=== PATIENT | female | born 2000 | race Caucasian/White ===

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

== ENCOUNTER → 2020-05-24 | Outpatient (CLI) | payer OTHER | END | disposition home or self-care (01) | LOC: LABWHC1 14:15 | PROVIDERS: ATTEND Family Medicine | DX: J06.9 Acute upper respiratory infection, unspecified (principal) | CPT/HCPCS: U0003; C9803 ==

== ENCOUNTER 2020-08-18 15:13 | Emergency (ER) | payer OTHER ==
[2020-08-18 15:39] VITALS: BP 135/85; PULSE 72; RESP 18; TEMP 99.1
--- NOTE | 2020-08-18 16:15 | ED ---
General Adult HPI - General Chief complaint: Upper Respiratory Infection Stated complaint: Wants COVID Test Time Seen by Provider: 08/18/20 15:27 Source: patient, RN notes reviewed, old records reviewed Mode of arrival: ambulatory Limitations: no limitations - History of Present Illness Initial comments: 19-year-old female patient to ED for evaluation. Reports a multiple people in the house are covid positive.. She reports that she is having some generalized myalgias sinus congestion. Requests to be tested. Denies any other complaints. Systemic: Pt denies fatigue, fever/chills, rash. Pt denies weakness, night sweats, weight loss. Neuro: Pt denies headache, visual disturbances, syncope or pre-syncope. HEENT: Pt denies ocular discharge or irritation, otalgia, rhinorrhea, pharyngitis or notable lymphadenopathy. Cardiopulmonary: Pt denies chest pain, SOB, heart palpitations, dyspnea on exertion. Abdominal/GI: Pt denies abdominal pain, n/v/d. : Pt denies dysuria, burning w/ urination, frequency/urgency. Denies new onset urinary or bowel incontinence. MSK: Pt denies loss of strength or function in extremities. Neuro: Pt denies new onset weakness, paresthesias. - Related Data Home Medications Medication Instructions Recorded Confirmed Cetirizine HCl [Zyrtec] 10 mg PO DAILY 03/01/19 03/01/19 Clarithromycin [Biaxin] 500 mg PO Q12H 03/01/19 03/01/19 methylPREDNISolone Dose Pack See Taper PO DIRECTED 03/01/19 03/01/19 [Medrol Dose Pack] Allergies Allergy/AdvReac Type Severity Reaction Status Date / Time No Known Allergies Allergy Verified 08/18/20 15:38 Review of Systems ROS Statement: Those systems with pertinent positive or pertinent negative responses have been documented in the HPI. ROS Other: All systems not noted in ROS Statement are negative. Past Medical History Past Medical History: No Reported History History of Any Multi-Drug Resistant Organisms: None Reported Past Surgical History: No Surgical Hx Reported Past Psychological History: No Psychological Hx Reported Smoking Status: Never smoker Past Alcohol Use History: None Reported Past Drug Use History: None Reported General Exam - General Exam Comments Initial Comments: Constitutional: NAD, AOX3, Pt has pleasant affect. HEENT: NC/AT, trachea midline, neck supple, no lymphadenopathy. External ears appear normal, without discharge. Mucous membranes moist. Eyes PERRLA, EOM intact. There is no scleral icterus. No pallor noted. Cardiopulmonary: RRR, no murmurs, rubs or gallops, no JVD noted. Lungs CTAB in anterior and posterior dunne. No peripheral edema. Abdominal exam: Abdomen soft and non-distended. Bowel sounds active in LLQ. No hepatosplenomegaly. No ecchymosis Neuro: CN II-XII grossly intact. No nuchal rigidity. No raccon eyes, no antony sign, no hemotympanum. No cervical spinal tenderness. MSK: No posterior calf tenderness bilaterally, homans sign negative bilaterally. Full active ROM in upper and lower extremities, 5/5 stregnth. Limitations: no limitations Course Vital Signs 08/18/20 15:35 Temperature 99.1 F Pulse Rate 72 Respiratory 18 Rate Blood Pressure 135/85 O2 Sat by Pulse 99 Oximetry Medical Decision Making - Medical Decision Making 19-year-old female patient to ED for evaluation. Reports a multiple people in the house are covid positive. She reports that she is having some generalized myalgias sinus congestion. Requests to be tested. Denies any other complaints. Patient will signs are stable, afebrile. Physical exam negative for acute pathology. Patient declined chest x-ray. Will be discharged outpatient follow- up and return precautions. Case discussed with Dr. Yao. Disposition Clinical Impression: Exposure to COVID-19 virus Disposition: HOME SELF-CARE Condition: Stable Instructions (If sedation given, give patient instructions): Upper Respiratory Infection (ED) Additional Instructions: Follow up with PCP tomorrow. Drink lots of fluids. Self quarantine until test results. If your symptoms worsen return to Emergency Department. Is patient prescribed a controlled substance at d/c from ED?: No Referrals: Mario Sapp MD [Primary Care Provider] - 1-2 days
== END 2020-08-18 16:35 | disposition home or self-care (01) ==
LOC: EC 15:13
DX: U07.1 COVID-19 (principal)
CPT/HCPCS: 87635; 99284

== ENCOUNTER 2021-11-03 02:52 | Emergency (ER) | payer OTHER ==
[2021-11-03 03:00] VITALS: TEMP 97.6
[2021-11-03] MEDS ORDERED: ACETAMINOPHEN TAB 325 MG TAB PO STA (03:21)
[2021-11-03] MEDS ORDERED: ONDANSETRON ODT 4 MG TAB PO STA (03:21)
--- NOTE | 2021-11-03 03:32 | ED ---
Head Injury HPI - General Chief complaint: Head Injury Stated complaint: Fall, vomiting Time Seen by Provider: 11/03/21 03:07 Source: patient Mode of arrival: ambulatory Limitations: no limitations - History of Present Illness Initial comments: This patient is 21-year-old woman who states that she had a fall tonight around 5 PM. She had slipped on ice, falling backwards and landed on her back and struck the back of her head. There was no loss of consciousness. The patient states that she had a little bit of pain but then felt well. She states that over the past hour to 2 she has developed more of a headache. She indicates the bifrontal area, states it is aching. There are no neurologic symptoms. There is no neck pain or stiffness. She also has had nausea and a couple episodes of vomiting. She denies other injury. MD Complaint: head injury -: hour(s) Mechanism of Injury: mechanical fall Location: occipital Loss of Consciousness: no Previous Trauma to this Area: No Place: outdoors Radiation: none Severity: moderate Quality: aching Consistency: constant Provoking factors: none known Other Injuries: none Associated Symptoms: nausea, vomiting - Related Data Home Medications Medication Instructions Recorded Confirmed Cetirizine HCl [Zyrtec] 10 mg PO DAILY 03/01/19 03/01/19 Clarithromycin [Biaxin] 500 mg PO Q12H 03/01/19 03/01/19 methylPREDNISolone Dose Pack See Taper PO DIRECTED 03/01/19 03/01/19 [Medrol Dose Pack] Previous Rx's Medication Instructions Recorded Ondansetron Odt [Zofran ODT] 4 mg PO Q8HR PRN #10 tab 11/03/21 Allergies/Adverse reactions: Allergies Allergy/AdvReac Type Severity Reaction Status Date / Time No Known Allergies Allergy Verified 11/03/21 02:57 Review of Systems ROS Statement: Those systems with pertinent positive or pertinent negative responses have been documented in the HPI. ROS Other: All systems not noted in ROS Statement are negative. Constitutional: Denies: fever, chills Eyes: Denies: eye pain, vision change ENT: Denies: ear pain, epistaxis Respiratory: Denies: cough, dyspnea Cardiovascular: Denies: chest pain, syncope Gastrointestinal: Reports: nausea, vomiting. Denies: abdominal pain, diarrhea, hematemesis Genitourinary: Denies: dysuria, hematuria Musculoskeletal: Denies: back pain Skin: Denies: rash Neurological: Reports: headache. Denies: weakness, numbness, confusion, abnormal gait, vertigo Past Medical History Past Medical History: No Reported History History of Any Multi-Drug Resistant Organisms: None Reported Past Surgical History: No Surgical Hx Reported Past Psychological History: No Psychological Hx Reported Smoking Status: Never smoker Past Alcohol Use History: None Reported Past Drug Use History: None Reported General Exam Limitations: no limitations General appearance: alert, in no apparent distress Head exam: Present: atraumatic, normocephalic, normal inspection Eye exam: Present: normal appearance, PERRL, EOMI. Absent: scleral icterus, conjunctival injection, nystagmus, periorbital swelling ENT exam: Present: normal oropharynx, mucous membranes moist, TM's normal bilaterally, normal external ear exam Neck exam: Present: normal inspection, full ROM. Absent: tenderness, meningismus Respiratory exam: Present: normal lung sounds bilaterally. Absent: respiratory distress, wheezes, rales, rhonchi, stridor Cardiovascular Exam: Present: regular rate, normal rhythm, normal heart sounds. Absent: systolic murmur, diastolic murmur, rubs, gallop GI/Abdominal exam: Present: soft. Absent: tenderness, guarding, rebound Extremities exam: Present: normal inspection, normal capillary refill Back exam: Present: normal inspection. Absent: paraspinal tenderness, vertebral tenderness Neurological exam: Present: alert, CN II-XII intact. Absent: oriented X3, motor sensory deficit Skin exam: Present: warm, dry, intact, normal color. Absent: rash Course Vital Signs 11/03/21 02:57 Temperature 97.6 F Pulse Rate 75 Respiratory 16 Rate Blood Pressure 142/96 O2 Sat by Pulse 99 Oximetry Disposition Clinical Impression: Concussion without loss of consciousness Disposition: HOME SELF-CARE Condition: Good Instructions (If sedation given, give patient instructions): Concussion (ED) Prescriptions: Ondansetron Odt [Zofran ODT] 4 mg PO Q8HR PRN #10 tab PRN Reason: Nausea Is patient prescribed a controlled substance at d/c from ED?: No Referrals: Mario Sapp MD [Primary Care Provider] - 1-2 days
--- NOTE | 2021-11-03 03:48 | CT ---
EXAMINATION TYPE: CT brain wo con DATE OF EXAM: 11/03/2021 COMPARISON: None HISTORY: Fall CT DLP: 1139.4 mGycm Automated exposure control for dose reduction was used. Images of the brain obtained without contrast. Ventricles and sulci appear normal. There is no mass effect or midline shift. There is no sign of int racranial hemorrhage. The calvarium is intact. Skull base is intact. There is normal aeration of the mastoid sinuses. IMPRESSION: Negative unenhanced head CT scan
[2021-11-03 04:54] VITALS: BP 140/84; PULSE 80; RESP 18
== END 2021-11-03 04:54 | disposition home or self-care (01) ==
LOC: EC 02:52
DX: S06.0X0A Concussion without loss of consciousness, initial encounter (principal); W01.0XXA Fall on same level from slipping, tripping and stumbling without subsequent striking against object, initial encounter
CPT/HCPCS: 70450; 99284

== ENCOUNTER 2023-10-29 18:01 | Emergency (ER) | payer BC, OTHER ==
--- NOTE | 2023-10-29 18:14 | ED ---
Upper Extremity HPI - General Source: patient, RN notes reviewed Mode of arrival: ambulatory Limitations: no limitations - History of Present Illness MD Complaint: Injury to:: right, finger <Bobbi Junior - Last Filed: 10/29/23 18:11> - General Source: patient, RN notes reviewed <Lorraine Barrera - Last Filed: 10/29/23 18:35> - General Chief Complaint: Extremity Injury, Upper Stated Complaint: Rt hand injury Time Seen by Provider: 10/29/23 18:11 - History of Present Illness Initial Comments: This is a 23 year old female who presents to the emergency department for a right finger injury. States that she cut her finger pinky finger in the process of cutting cucumbers. Tetanus vaccine is up to date. (Bobbi Junior) Patient is a 23-year-old female presented ER with chief complaint laceration. Patient states she was cutting cucumbers a mandolian slicer and accidentally cut her right fifth digit. Tetanus is up to date. FUll ROM. Denies any other injuries. (Lorraine Barrera) - Related Data Home Medications Medication Instructions Recorded Confirmed Cetirizine HCl [Zyrtec] 10 mg PO DAILY 03/01/19 03/01/19 Clarithromycin [Biaxin] 500 mg PO Q12H 03/01/19 03/01/19 methylPREDNISolone Dose Pack See Taper PO DIRECTED 03/01/19 03/01/19 [Medrol Dose Pack] Previous Rx's Medication Instructions Recorded Ondansetron Odt [Zofran ODT] 4 mg PO Q8HR PRN #10 tab 11/03/21 Allergies Allergy/AdvReac Type Severity Reaction Status Date / Time No Known Allergies Allergy Verified 10/29/23 18:15 Review of Systems ROS Other: All systems not noted in ROS Statement are negative. <Bobbi Junior - Last Filed: 10/29/23 18:11> ROS Other: All systems not noted in ROS Statement are negative. <Lorraine Barrera - Last Filed: 10/29/23 18:35> ROS Statement: Those systems with pertinent positive or pertinent negative responses have been documented in the HPI. Past Medical History Past Medical History: No Reported History History of Any Multi-Drug Resistant Organisms: None Reported Past Surgical History: No Surgical Hx Reported Past Psychological History: No Psychological Hx Reported Smoking Status: Never smoker Past Alcohol Use History: None Reported Past Drug Use History: None Reported <Bobbi Junior - Last Filed: 10/29/23 18:11> General Exam <Bobbi Junior - Last Filed: 10/29/23 18:11> General appearance: alert, in no apparent distress Head exam: Present: atraumatic, normocephalic, normal inspection Respiratory exam: Present: normal lung sounds bilaterally. Absent: respiratory distress, wheezes, rales, rhonchi, stridor Cardiovascular Exam: Present: regular rate, normal rhythm, normal heart sounds. Absent: systolic murmur, diastolic murmur, rubs, gallop, clicks Extremities exam: Present: other (1cm avuslion laceration to right fifth distal soft tissue. Full active ROM. sensation intact no active bleeding) Neurological exam: Present: alert, oriented X3, CN II-XII intact Psychiatric exam: Present: normal affect, normal mood Skin exam: Present: warm, dry, intact, normal color. Absent: rash <Lorraine Barrera - Last Filed: 10/29/23 18:35> - General Exam Comments Initial Comments: Visual Physical Exam Vital signs reviewed General: Well-appearing, nontoxic, no acute distress. Head: Normocephalic, atraumatic Eyes: PERRLA, EOMI ENT: Airway patent Chest: Nonlabored breathing Skin: No visual rash, normal skin tone Neuro: Alert and oriented 3 Musculoskeletal: No gross abnormalities (Bobbi Junior) Course Vital Signs 10/29/23 18:13 Temperature 98.4 F Pulse Rate 78 Respiratory 20 Rate Blood Pressure 132/90 O2 Sat by Pulse 99 Oximetry Medical Decision Making <Bobbi Junior - Last Filed: 10/29/23 18:11> <Lorraine Barrera - Last Filed: 10/29/23 18:35> - Medical Decision Making I performed the QuickNote portion of this chart. Signed Bobbi Junior PA-C. (Bobbi Junior) Was pt. sent in by a medical professional or institution ([facility], [facility], urgent care, hospital, or skilled nursing...) When possible be specific @ -No Did you speak to anyone other than the patient for history (EMS, parent, family, police, friend...)? What history was obtained from this source @ -No Did you review nursing and triage notes (agree or disagree)? Why? @ -I reviewed and agree with nursing and triage notes Were old charts reviewed (outside hosp., previous admission, EMS record, old EKG, old radiological studies, urgent care reports/EKG's, skilled nursing records)? Report findings @ -No old charts were reviewed Differential Diagnosis (chest pain, altered mental status, abdominal pain women, abdominal pain men, vaginal bleeding, weakness, fever, dyspnea, syncope, headache, dizziness, GI bleed, back pain, seizure, CVA, palpatations, mental health, musculoskeletal)? @ -Differential Musculoskeletal: Muscular strain, contusion, ligament sprain, fracture, arthritis, septic arthritis, bursitis, cellulitis, muscle spasm, nerve compression, DVT, arterial occlusion, herpes zoster, electrolyte abnormality, tumor.... This is not meant to be in all inclusive list EKG interpreted by me (3pts min.). @ -None X-rays interpreted by me (1pt min.). @ -None done CT interpreted by me (1pt min.). @ -None done U/S interpreted by me (1pt. min.). @ -None done What testing was considered but not performed or refused? (CT, X-rays, U/S, labs)? Why? @ -None What meds were considered but not given or refused? Why? @ -None Did you discuss the management of the patient with other professionals (professionals i.e. , PA, [facility], lab, RT, psych nurse, social service agency director, photo tube assembler, teacher, public health officer, shoe caser)? Give summary @ -No Was smoking cessation discussed for >3mins.? @ -No Was critical care preformed (if so, how long)? @ -No Were there social determinants of health that impacted care today? How? (Homelessness, low income, unemployed, alcoholism, drug addiction, transportation, low edu. Level, literacy, decrease access to med. care, [facility], rehab)? @ -No Was there de-escalation of care discussed even if they declined (Discuss DNR or withdrawal of care, Hospice)? DNR status @ -No What co-morbidities impacted this encounter? (DM, HTN, Smoking, COPD, CAD, Cancer, CVA, ARF, Chemo, Hep., AIDS, mental health diagnosis, sleep apnea, morbid obesity)? @ -None Was patient admitted / discharged? Hospital course, mention meds given and route, prescriptions, significant lab abnormalities, going to OR and other pertinent info. @ -Discharge. Patient is a 23-year-old female presented ER with chief complaint of a laceration. Vitals stable. Patient is a 1 cm right fifth distal digit. Neurovascularly intact and deep structures intact. Tetanus is up to date. I advised patient to keep area clean, dry, and to monitor for signs of infection. Return parameters were discussed. Patient will be discharged in stable condition with follow-up to PCP. Patient expressed understanding and agreement with care plan. Undiagnosed new problem with uncertain prognosis? @ -No Drug Therapy requiring intensive monitoring for toxicity (Heparin, Nitro, Insulin, Cardizem)? @ -No Were any procedures done? @ -No Diagnosis/symptom? @ -Avulsion to the distal fifth finger soft tissue Acute, or Chronic, or Acute on Chronic? @ -Acute Uncomplicated (without systemic symptoms) or Complicated (systemic symptoms)? @ -Uncomplicated Side effects of treatment? @ -No Exacerbation, Progression, or Severe Exacerbation? @ -No Poses a threat to life or bodily function? How? (Chest pain, [place], [place], pneumonia, PE, COPD, DKA, ARF, appy, cholecystitis, CVA, Diverticulitis, Homicidal, Suicidal, threat to staff... and all critical care pts) @ -No (Lorraine Barrera) Disposition <Bobbi Junior - Last Filed: 10/29/23 18:11> Is patient prescribed a controlled substance at d/c from ED?: No Time of Disposition: 18:29 <Lorraine Barrera - Last Filed: 10/29/23 18:35> Clinical Impression: Avulsion of skin of finger Disposition: HOME SELF-CARE Condition: Stable Additional Instructions: Please keep area clean and dry. Monitor for signs of infection. Follow-up with PCP in next 1-2 days. Return to ER for any new or worsening symptoms. Referrals: Mario Sapp MD [Primary Care Provider] - 1-2 days
[2023-10-29 18:21] VITALS: BP 132/90; PULSE 78; RESP 20; TEMP 98.4
== END 2023-10-29 19:03 | disposition home or self-care (01) ==
LOC: EC 18:01
DX: S61.316A Laceration without foreign body of right little finger with damage to nail, initial encounter (principal); W26.8XXA Contact with other sharp object(s), not elsewhere classified, initial encounter
CPT/HCPCS: 99283